=== PATIENT | female | born 1965 | race Two or more races ===

== ENCOUNTER 2021-02-05 07:47 | Emergency (ER) | payer OTHER ==
[~2021-02-05] VITALS: Ht 167.6 cm; Wt 85.3 kg
[2021-02-05 08:14] LABS: Urine Bacteria MANY /hpf (None Seen); Urine Blood Negative /uL (Negative); Urine Mucus FEW (None Seen); Urine Specific Gravity 1.022 (1.001-1.035); Urine WBC 18 /hpf (0 - 5)
[2021-02-05 08:19] LABS: Basophils # (auto) 0.1 10 ^3/uL (0-0.2); Basophils % (auto) 0.7 % (0.0-2.0); Eosinophils # (auto) 0.1 10 ^3/uL (0-0.8); Hematocrit 43.7 % (36.0-46.0); Hemoglobin 15.1 g/dL (12.2-16.2); Lymphocytes # (auto) 3.9 10 ^3/uL (0.4-5.4); Lymphocytes % (auto) 37.6 % (10.0-50.0); Mean Corpuscular Hgb Conc. 34.5 g/dL (32.0-36.0); Mean Corpuscular Volume 92.6 fL (80.0-100.0); Monocytes # (auto) 0.6 10 ^3/uL (0-1.3); Monocytes % (auto) 5.4 % (0.0-12.0); Neutrophils # (auto) 5.8 10 ^3/uL (1.6-8.6); Neutrophils % (auto) 55.3 % (37.0-80.0); Nucleated Red Blood Cells % 0.1 %; Red Blood Cells 4.72 10^6/uL (4.0-5.20); Red Cell Distribution Width 12.8 % (11.8-14.3); White Blood Cell 10.4 10^3/uL (4.4-10.8)
[2021-02-05 08:31] LABS: Albumin 3.9 g/dL (3.4-5.0); BUN/Creatinine Ratio 23.2; Calcium 9.5 mg/dL (8.5-10.1); Potassium 4.3 mmol/L (3.5-5.1)
[2021-02-05 08:34] LABS: Bilirubin, Total 0.3 mg/dL (0.2-1.0); Total Protein 7.5 g/dL (6.4-8.2)
== END 2021-02-05 09:23 | disposition home or self-care (01) ==
LOC: ER 07:47
DX: N39.0 Urinary tract infection, site not specified (principal); E11.9 Type 2 diabetes mellitus without complications; I10 Essential (primary) hypertension; F17.210 Nicotine dependence, cigarettes, uncomplicated; Z90.710 Acquired absence of both cervix and uterus; Z90.89 Acquired absence of other organs
CPT/HCPCS: 36415; 74176; 80053; 81001; 83690; 85025; 93005

== ENCOUNTER 2021-10-29 08:33 | Emergency (ER) | payer OTHER ==
[~2021-10-29] VITALS: Ht 167.6 cm; Wt 83.9 kg
[2021-10-29] MEDS ORDERED: LOSARTAN POTASSIUM 25 MG TAB PO ONE (10:45)
[2021-10-29] MEDS ORDERED: KETOROLAC TROMETH 60MG/2ML VIAL IM ONE (10:45)
[2021-10-29] MEDS ORDERED: HCTZ 25 MG TAB PO ONE (10:45)
[2021-10-29 11:13] VITALS: BP 138/79
[2021-10-29] MEDS ORDERED: ACE3T PO (12:52)
[2021-10-29] MEDS ORDERED: CYCL-837 PO (12:52)
== END 2021-10-29 13:13 | disposition home or self-care (01) ==
LOC: ER 08:33
DX: S39.012A Strain of muscle, fascia and tendon of lower back, initial encounter (principal); F17.210 Nicotine dependence, cigarettes, uncomplicated; E11.9 Type 2 diabetes mellitus without complications; I10 Essential (primary) hypertension; Z90.89 Acquired absence of other organs; Z90.710 Acquired absence of both cervix and uterus; X58.XXXA Exposure to other specified factors, initial encounter; Y93.89 Activity, other specified; Y92.89 Other specified places as the place of occurrence of the external cause; Y99.8 Other external cause status
CPT/HCPCS: 72100; 74176; 81002; 96372; 99284; J1885

== ENCOUNTER 2024-03-16 08:09 | Emergency (ER) | payer BC, OTHER ==
[~2024-03-16] VITALS: Ht 167.6 cm; Wt 87.6 kg
[~2024-03-16 08:09] MED LIST: ACE3T PO; CYCL-837 PO
[2024-03-16 08:14] VITALS: TEMP 98.3
[2024-03-16 08:30] VITALS: PULSE 88; RESP 21; O2SAT 95
[2024-03-16 09:00] LABS: Alanine Aminotransferase 28 U/L (7-40); Albumin 4.8 g/dL (3.2-4.8); Alkaline Phosphatase 65 U/L (46-116); Anion Gap 9 (5-15); Aspartate Aminotransferase 31 U/L (13-40); Bilirubin, Total 0.3 mg/dL (0.2-1.0); Blood Urea Nitrogen 8 mg/dL (9-23); Calcium 9.8 mg/dL (8.7-10.4); Carbon Dioxide 24 mmol/L (20-31); Chloride 102 mmol/L (98-107); Glucose 157 mg/dL (74-106); Potassium 4.3 mmol/L (3.5-5.1); Sodium 135 mmol/L (136-145); Total Protein 7.4 g/dL (5.7-8.2)
[2024-03-16] MEDS: ALBUTEROL SULF 2.5 MG/0.5ML(0.5%) NEB SOLN NEB ONE (09:07)
[2024-03-16] MEDS: guaiFENesin-CODEINE Liq 5 ML UD PO ONE (09:16)
[2024-03-16 09:29] LABS: Basophils # (auto) 0.1 10 ^3/uL (0-0.2); Basophils % (auto) 0.7 % (0.0-2.0); Eosinophils # (auto) 0 10 ^3/uL (0-0.8); Eosinophils % (auto) 0.3 % (0.0-7.0); Hematocrit 45.4 % (36.0-46.0); Hemoglobin 15.2 g/dL (12.2-16.2); Lymphocytes # (auto) 1.3 10 ^3/uL (0.4-5.4); Lymphocytes % (auto) 16.9 % (10.0-50.0); Mean Corpuscular Hemoglobin 30.7 pg (28.0-32.0); Mean Corpuscular Hgb Conc. 33.4 g/dL (32.0-36.0); Mean Corpuscular Volume 91.7 fL (80.0-100.0); Monocytes # (auto) 0.7 10 ^3/uL (0-1.3); Neutrophils # (auto) 5.6 10 ^3/uL (1.6-8.6); Neutrophils % (auto) 73.1 % (37.0-80.0); Nucleated Red Blood Cells % 0.1 %; Platelet Count (auto) 285 10^3/uL (140-450); Red Blood Cells 4.95 10^6/uL (4.0-5.20); White Blood Cell 7.6 10^3/uL (4.4-10.8)
[2024-03-16] MEDS: SODIUM CHLORIDE 0.9% 1,000 ML IV ONE (09:39)
[2024-03-16] MEDS ORDERED: ALBUAER3 IN (10:42)
[2024-03-16] MEDS ORDERED: AZIT-185 PO (10:42)
[2024-03-16] MEDS ORDERED: BENZ200C64 PO (10:42)
[2024-03-16 11:00] VITALS: BP 117/67; PULSE 81; RESP 14; O2SAT 96
[2024-03-16 11:04] LABS: COVID19 ANTIGEN SOFIA FIA NEGATIVE (NEGATIVE)
[2024-03-16 11:07] LABS: Rapid Influenza B Negative (Negative)
[2024-03-16 11:09] LABS: Rapid Influenza A Positive (Negative)
[2024-03-16] MEDS ORDERED: OSEL75CA5 PO (11:38)
[2024-03-16] MEDS ORDERED: RESPMIS2 XX (11:40)
== END 2024-03-16 11:40 | disposition home or self-care (01) ==
LOC: ER 08:09
DX: R06.02 Shortness of breath (principal); R42 Dizziness and giddiness
CPT/HCPCS: 36415; 71046; 80053; 82962; 83880; 84484; 85025; 87426; 87804; 93005; 94640; 96360; 96361; 99285; J7030